=== PATIENT | male | born 1945 | race Caucasian/White ===

== ENCOUNTER 2016-08-09 17:37 | Emergency (ER) | payer OTHER ==
[2016-08-09 18:01] VITALS: BP 133/87
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
== END 2016-08-09 19:45 | disposition home or self-care (01) ==
LOC: FB.ED 17:37
DX: S06.9X9A Unspecified intracranial injury with loss of consciousness of unspecified duration, initial encounter (principal); W07.XXXA Fall from chair, initial encounter; M54.2 Cervicalgia; F10.129 Alcohol abuse with intoxication, unspecified; K43.9 Ventral hernia without obstruction or gangrene; Y90.1 Blood alcohol level of 20-39 mg/100 ml
CPT/HCPCS: 36415; 70450; 72125; 80053; 85025; 99284; G0480; 99282

== ENCOUNTER 2016-08-31 12:59 | Emergency (ER) | payer OTHER ==
[2016-08-31] MEDS ORDERED: Sodium Chloride 0.9% 10 ML Syringe FLUSH PRN (13:07)
[2016-08-31 13:28] VITALS: BP 134/79
--- NOTE | 2016-08-31 15:33 | EDM.PDOC ---
ED HPI NEURO - General Chief Complaint: Neuro Symptoms/Deficits Stated Complaint: VERY CONFUSED Time Seen by Provider: 08/31/16 13:25 Source: Reports: Patient, Family History Limitations: Reports: Altered mental status - History of Present Illness INITIAL COMMENTS - FREE TEXT/NARRATIVE: 71 years old w m came to the ed due to mental status changes. Pt has a SD hematoma and had a John Hole place placed 4 days ago at [facility]. Pt was disoriented to place, time, situation and person. Family is not able to take care of him. He took 1000mg of Keppra daily. No N/V/D. Pt is combative. Denies pain/headache. Symptom Onset Date: 08/30/16 Symptom Onset Time: 22:00 Timing/Duration: Reports: Hour(s):, Getting worse, Sudden onset Location (Neuro Complaint): Reports: generalized Quality (Neuro Complaint): Reports: weakness, altered gait, altered sensation, altered speech, other (confusion) Improves with: Reports: None Worsens with: Reports: None Associated symptoms: Reports: confusion - Related Data Allergies/ADRs: Allergies Allergy/AdvReac Type Severity Reaction Status Date / Time morphine Allergy Hives Uncoded 08/31/16 13:27 Home Meds: Home Meds NK [No Known Home Meds] 08/09/16 [History] Past Medical History - Past Health History Medical/Surgical History: Denies Medical/Surgical History HEENT History: Reports: Cataract, Impaired vision Gastrointestinal History: Reports: GERD Neurological History: Reports: Other (see below) Other Neuro History: had hemorrhage and had surgery to remove/drain the blood. - Past Surgical History GI Surgical History: Reports: Other (see below) Other GI Surgeries/Procedures: patient had intraabdominal surgeries. Social & Family History - Family History Family Medical History: Noncontributory - Tobacco Use Smoking Status *Q: Never Smoker Second Hand Smoke Exposure: No - Caffeine Use Caffeine Use: Reports: Coffee, Soda, Tea - Alcohol Use Days Per Week of Alcohol Use: 1 Number of Drinks Per Day: 3 Total Drinks Per Week: 3 - Recreational Drug Use Recreational Drug Use: No ED ROS GENERAL - Review of Systems Review Of Systems: Unable To Obtain ED EXAM, NEURO - Physical Exam Exam: See Below Exam Limited By: Altered mental status General Appearance: alert, WD/WN, mild distress Eye Exam: left eye: abnormal pupil (Left pupil 4 mm r pupil 3 mm) Ears: normal external exam Nose: normal inspection, normal mucosa, no blood Throat/Mouth: Normal inspection, Normal lips, Normal gums Head Exam: other (S/P John Hole placement left ev) Neck: normal inspection, supple, non-tender, full range of motion Respiratory/Chest: no respiratory distress, lungs clear, normal breath sounds, no accessory muscle use, chest non-tender Cardiovascular: normal peripheral pulses, regular rate, rhythm GI/Abdominal: normal bowel sounds, soft, non tender, no organomegaly (Male) Exam: Deferred Rectal (Males) Exam: Deferred Neurological: alert, abnormal gait, ataxia, abnormal finger to nose, abnormal sensation Back Exam: normal inspection Extremities: normal inspection, normal range of motion, non-tender Psychiatric: flat affect Skin Exam: Warm, Dry, Intact, Normal color, No rash Course - Vital Signs Text/Narrative:: 71 years old w m came to the ed due to mental status changes. Pt has a SD hematoma and had a John [place] place placed 4 days ago at [facility]. Pt was disoriented to place, time, situation and person. Family is not able to take care of him. He took 1000mg of Keppra daily. No N/V/D. Pt is combative. Denies pain/headache. PE: Mental status changes, confused and occ combative Imaging: New SD hematoma left side with mass effect Labs: WBC nl. INR pending, Na 134 please see report Consultation at 3.01 pm: Dr. De Oliveira, Neurosurgeon: Transfer pt to [facility] , needs to be drained again, no medications to be given, Dr. Sampson, Hospitalist accepted the pt for further care. Impression: SD hematoma with mass effect Plan: Transfer to [facility], direct admit. Family was informed Last Recorded V/S: Last Vital Signs Temp 37.3 C 08/31/16 13:25 Pulse 88 08/31/16 13:25 Resp 16 08/31/16 13:25 BP 134/79 08/31/16 13:25 Pulse Ox 95 08/31/16 13:25 - Orders/Labs/Meds Orders: Active Orders 24 hr Category Date Time Status Head wo Cont [CT] Stat Exams 08/31/16 13:07 Taken INR,PT,PROTHROMBIN TIME [COAG] Stat Lab 08/31/16 15:49 Ordered KEPPRA [REF] Stat Lab 08/31/16 13:20 Received Sodium Chloride 0.9% [Saline Flush] Med 08/31/16 13:07 Active 10 ml FLUSH ASDIRECTED PRN Saline Lock Insert [OM.PC] Routine Oth 08/31/16 13:07 Ordered Medication Orders Sodium Chloride (Saline Flush) 10 ml FLUSH ASDIRECTED PRN PRN Reason: Keep Vein Open Labs: Laboratory Tests 08/31/16 08/31/16 08/31/16 Range/Units 13:20 13:20 13:20 WBC 7.2 (4.5-12.0) X10-3/uL RBC 4.21 L (4.30-5.75) x10(6)uL Hgb 12.9 (11.5-15.5) g/dL Hct 38.1 (30.0-51.3) % MCV 90.6 (80-96) fL MCH 30.7 (27.7-33.6) pg MCHC 33.9 (32.2-35.4) g/dL RDW 12.8 (11.5-15.5) % Plt Count 265 (125-369) X10(3)uL MPV 8.4 (7.4-10.4) fL Neut % (Auto) 70.0 (46-82) % Lymph % (Auto) 17.3 (13-37) % [place] % (Auto) 9.9 (4-12) % Eos % (Auto) 2 (1.0-5.0) % Baso % (Auto) 1 (0-2) % Neut # (Auto) 5.1 (1.6-8.3) # Lymph # (Auto) 1.2 (0.6-5.0) # [place] # (Auto) 0.7 (0.0-1.3) # Eos # (Auto) 0.1 (0.0-0.8) # Baso # (Auto) 0.1 (0.0-0.2) # Sodium 134 L (135-145) mmol/L Potassium 3.9 (3.5-5.3) mmol/L Chloride 102 D (100-110) mmol/L Carbon Dioxide 25 (23-29) mmol/L BUN 9 (8-23) mg/dL Creatinine 0.8 (0.6-1.3) mg/dL Est Cr Clr Drug Dosing TNP Estimated GFR (MDRD) > 60 (>60) BUN/Creatinine Ratio 11.3 (9-20) Glucose 174 H (80-116) mg/dL Calcium 8.9 (8.6-10.2) mg/dL B-Natriuretic Peptide 62 (0-100) pg/mL Urine Color (YELLOW) Urine Appearance (CLEAR) Urine pH (5.0-6.5) Ur Specific [place] (1.010-1.025) Urine Protein (NEGATIVE) mg/dL Urine Glucose (UA) (NEGATIVE) mg/dL Urine Ketones (NEGATIVE) mg/dL Urine Occult Blood (NEGATIVE) Urine Nitrite (NEGATIVE) Urine Bilirubin (NEGATIVE) Urine Urobilinogen (NEGATIVE) mg/dL Ur Leukocyte Esterase (NEGATIVE) Urine WBC (0) Ur Squamous Epith Cells (NS,R,O) Urine Bacteria (NS) 08/31/16 Range/Units 13:45 WBC (4.5-12.0) X10-3/uL RBC (4.30-5.75) x10(6)uL Hgb (11.5-15.5) g/dL Hct (30.0-51.3) % MCV (80-96) fL MCH (27.7-33.6) pg MCHC (32.2-35.4) g/dL RDW (11.5-15.5) % Plt Count (125-369) X10(3)uL MPV (7.4-10.4) fL Neut % (Auto) (46-82) % Lymph % (Auto) (13-37) % [place] % (Auto) (4-12) % Eos % (Auto) (1.0-5.0) % Baso % (Auto) (0-2) % Neut # (Auto) (1.6-8.3) # Lymph # (Auto) (0.6-5.0) # [place] # (Auto) (0.0-1.3) # Eos # (Auto) (0.0-0.8) # Baso # (Auto) (0.0-0.2) # Sodium (135-145) mmol/L Potassium (3.5-5.3) mmol/L Chloride (100-110) mmol/L Carbon Dioxide (23-29) mmol/L BUN (8-23) mg/dL Creatinine (0.6-1.3) mg/dL Est Cr Clr Drug Dosing Estimated GFR (MDRD) (>60) BUN/Creatinine Ratio (9-20) Glucose (80-116) mg/dL Calcium (8.6-10.2) mg/dL B-Natriuretic Peptide (0-100) pg/mL Urine Color Yellow (YELLOW) Urine Appearance Clear (CLEAR) Urine pH 6.0 (5.0-6.5) Ur Specific [place] 1.015 (1.010-1.025) Urine Protein Negative (NEGATIVE) mg/dL Urine Glucose (UA) Normal (NEGATIVE) mg/dL Urine Ketones Negative (NEGATIVE) mg/dL Urine Occult Blood Negative (NEGATIVE) Urine Nitrite Negative (NEGATIVE) Urine Bilirubin Negative (NEGATIVE) Urine Urobilinogen Normal (NEGATIVE) mg/dL Ur Leukocyte Esterase Negative (NEGATIVE) Urine WBC 0-5 (0) Ur Squamous Epith Cells Few H (NS,R,O) Urine Bacteria Few H (NS) Meds: Medications Generic Name Dose Route Start Last Admin Trade Name Freq PRN Reason Stop Dose Admin Sodium Chloride 10 ml 08/31/16 13:07 Saline Flush FLUSH ASDIRECTED PRN Keep Vein Open Departure - Departure Time of Disposition: 15:51 Disposition: DC/Tfer to [facility] Condition: fair Clinical Impression: Subdural hematoma Forms: ED Department Discharge - My Orders Last 24 Hours: My Active Orders 08/31/16 13:07 Head wo Cont [CT] Stat Sodium Chloride 0.9% [Saline Flush] 10 ml FLUSH ASDIRECTED PRN Saline Lock Insert [OM.PC] Routine 08/31/16 13:20 KEPPRA [REF] Stat 08/31/16 15:49 INR,PT,PROTHROMBIN TIME [COAG] Stat - Assessment/Plan Last 24 Hours: My Active Orders 08/31/16 13:07 Head wo Cont [CT] Stat Sodium Chloride 0.9% [Saline Flush] 10 ml FLUSH ASDIRECTED PRN Saline Lock Insert [OM.PC] Routine 08/31/16 13:20 KEPPRA [REF] Stat 08/31/16 15:49 INR,PT,PROTHROMBIN TIME [COAG] Stat
== END 2016-08-31 16:05 | disposition critical access hospital (66) ==
LOC: FB.ED 12:59
DX: I62.00 Nontraumatic subdural hemorrhage, unspecified (principal); K21.9 Gastro-esophageal reflux disease without esophagitis; Z88.5 Allergy status to narcotic agent
CPT/HCPCS: 70450; 80048; 80177; 81001; 83880; 85025; 85610; 99285; J7050; 36415

== ENCOUNTER 2016-12-10 18:21 | Emergency (ER) | payer OTHER ==
[2016-12-10] MEDS ORDERED: Diphtheria,Pertussis(Acell),Tetanus Vaccine 0.5 ML SDV IM ONE (18:30)
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
== END 2016-12-10 20:30 | disposition home or self-care (01) ==
LOC: FB.ED 18:21
DX: S00.03XA Contusion of scalp, initial encounter (principal); S80.812A Abrasion, left lower leg, initial encounter; S80.811A Abrasion, right lower leg, initial encounter; S40.812A Abrasion of left upper arm, initial encounter; F10.920 Alcohol use, unspecified with intoxication, uncomplicated; H54.7 Unspecified visual loss; K21.9 Gastro-esophageal reflux disease without esophagitis; Z88.5 Allergy status to narcotic agent; Z23 Encounter for immunization; V28.4XXA Motorcycle driver injured in noncollision transport accident in traffic accident, initial encounter
CPT/HCPCS: 36415; 90471; 90715; 99283; 99284; G0480

== ENCOUNTER 2017-02-14 19:14 | Emergency (ER) | payer OTHER ==
--- NOTE | 2017-02-14 20:15 | EDM.PDOC ---
ED HPI GENERAL MEDICAL PROBLEM - General Chief Complaint: Head Injury Stated Complaint: FALL Time Seen by Provider: 02/14/17 19:14 Source of Information: Reports: Patient History Limitations: Reports: No Limitations - History of Present Illness INITIAL COMMENTS - FREE TEXT/NARRATIVE: 72 y.o.w.m came with his PC to the ed due to a fall over a rug. No LOC. Pt denied andu other Acute Medical issues. No N/V/D or dizziness. pt is ambulating fine. BP 118/62 pulse 91 Onset: Today Onset Date: 02/14/17 Onset Time: 17:00 Duration: Hour(s): Location: Reports: Head Quality: Reports: Ache Severity: Mild Improves with: Reports: None Worsens with: Reports: None Context: Reports: Other (pt slipped on a rug, no LOC, was ambulating fine) - Related Data Allergies Allergy/AdvReac Type Severity Reaction Status Date / Time morphine Allergy Hives Uncoded 12/10/16 18:31 Home Meds: Home Meds Zolpidem Tartrate [Ambien] 5 mg PO DAILY 02/14/17 [History] Past Medical History - Past Health History Medical/Surgical History: Denies Medical/Surgical History HEENT History: Reports: Cataract, Impaired Vision Gastrointestinal History: Reports: GERD Neurological History: Reports: Other (See Below) Other Neuro History: had hemorrhage and had surgery to remove/drain the blood. - Past Surgical History GI Surgical History: Reports: Other (See Below) Social & Family History - Family History Family Medical History: Noncontributory - Tobacco Use Smoking Status *Q: Never Smoker Second Hand Smoke Exposure: No - Caffeine Use Caffeine Use: Reports: Coffee, Soda, Tea - Alcohol Use Days Per Week of Alcohol Use: 1 Number of Drinks Per Day: 3 Total Drinks Per Week: 3 - Recreational Drug Use Recreational Drug Use: No ED ROS GENERAL - Review of Systems Review Of Systems: See Below Constitutional: Reports: No Symptoms HEENT: Reports: No Symptoms, Other (small "bump" on head) Respiratory: Reports: No Symptoms, Shortness of Breath Cardiovascular: Reports: No Symptoms, Chest Pain Endocrine: Reports: No Symptoms, Fatigue GI/Abdominal: Reports: No Symptoms, Abdominal Pain : Reports: No Symptoms Musculoskeletal: Reports: No Symptoms Skin: Reports: No Symptoms Neurological: Reports: No Symptoms Psychiatric: Reports: No Symptoms Hematologic/Lymphatic: Reports: No Symptoms Immunologic: Reports: No Symptoms ED EXAM, HEAD INJURY - Physical Exam Exam: See Below Exam Limited By: No Limitations General Appearance: Alert, WD/WN, No Apparent Distress Head: Scalp Abrasions (r ev) Eyes: Bilateral Eye: Normal Inspection Ears: Normal External Exam Nose: Normal Inspection, Normal Mucousa Throat/Mouth: Normal Inspection, Normal Lips Neck: Non-Tender, Full Range of Motion Respiratory: No Respiratory Distress, Lungs Clear Cardiovascular: Normal Peripheral Pulses GI/Abdominal Exam: Normal Bowel Sounds, Soft (Male) Exam: Deferred Rectal (Males) Exam: Deferred Back Exam: Normal Inspection, Full Range of Motion Extremities: Normal Inspection, Normal Range of Motion Neurologic: screw machine operator II-XII nml As Tested Skin: Warm/Dry, Other (abrasion r ev) - Romelia Coma Score Best Eye Response (Romelia): (4) Open Spontaneously Best Verbal Response (Romelia): (5) Oriented Best Motor Response (Romelia): (6) Obeys Commands Course - Vital Signs Text/Narrative:: 72 y.o.w.m came with his PC to the ed due to a fall over a rug. No LOC. Pt denied andu other Acute Medical issues. No N/V/D or dizziness. pt is ambulating fine. BP 118/62 pulse 91 PE: Abrasion r ev Imaging: Nearly resolved left subdural hematoma, official report is pending Impression: Fall, resolving sudural hematoma. Reexam: Pt eloped before the CT Head results returned. Plan: Pt eloped, was OX# in the ed. We will try to reach him by phone, he is not a danger to himself of others. - Orders/Labs/Meds Orders: Active Orders 24 hr Category Date Time Status Head wo Cont [CT] Stat Exams 02/14/17 20:13 Taken Departure - Departure Time of Disposition: 21:46 Disposition: Eloped 07 Condition: Good Clinical Impression: H/O subdural hemorrhage Fall Qualifiers: Encounter type: initial encounter Qualified Code(s): W19.XXXA - Unspecified fall, initial encounter - Discharge Information Referrals: Matteo Amador MD [Primary Care Provider] - Forms: ED Department Discharge Additional Instructions: pt eloped from the ed, family was called, no answer. - My Orders Last 24 Hours: My Active Orders 02/14/17 20:13 Head wo Cont [CT] Stat - Assessment/Plan Last 24 Hours: My Active Orders 02/14/17 20:13 Head wo Cont [CT] Stat
[2017-02-14 23:43] VITALS: BP 118/62
== END 2017-02-14 20:55 | disposition left against medical advice (07) ==
LOC: FB.ED 19:14
DX: S00.01XA Abrasion of scalp, initial encounter (principal); R58 Hemorrhage, not elsewhere classified; R40.2412 Glasgow coma scale score 13-15, at arrival to emergency department; Z88.5 Allergy status to narcotic agent; Z79.899 Other long term (current) drug therapy; Z87.820 Personal history of traumatic brain injury; W19.XXXA Unspecified fall, initial encounter
CPT/HCPCS: 70450; 99283; 99284